=== PATIENT | female | born 1955 | race Caucasian/White ===

== ENCOUNTER 2016-12-24 13:20 | Emergency (ER) | payer MEDICARE, OTHER ==
[~2016-12-24 13:20] MED LIST: ACETAMINOPHEN325 MG PO; ADVAIR 250-501 EACH IH; ADVAIR IH; BACTROBAN15 GM TOP; BRINTELLIX20 MG PO; COMBIVENT RESPIM4 GM IH; DULCOLAX5 MG PO; EFFEXOR100 MG PO; ENDOCET 10-3251 EACH PO; LACTULOSE10 GM/15 M PO; LACTULOSE20 GM/30 M PO; LAMICTAL25 MG PO; MINIPRESS2 MG PO; NEURONTIN600 MG PO; NICOTINE TRANSD21 MG TOP; PREDNISONE10 MG PO; SYNTHROID50 MCG PO; TOPAMAX100 MG PO; TOPROL XL25 MG PO; TRAZODONE HCL150 MG PO; TRAZODONE HCL50 MG PO; XANAX1 MG PO; XYZAL5 MG PO; ZANAFLEX4 MG PO; ZANTAC300 MG PO; ZOFRAN4 MG PO; ZYPREXA2.5 MG PO
[2016-12-31] MEDS ORDERED: XANAX1 MG PO (09:55)
[2016-12-31] MEDS ORDERED: ENDOCET 10-3251 EACH PO (09:55)
[2016-12-31] MEDS ORDERED: EFFEXOR100 MG PO (09:56)
[2016-12-31] MEDS ORDERED: ZANAFLEX4 MG PO (09:56)
[2016-12-31] MEDS ORDERED: TOPAMAX100 MG PO (09:57)
[2016-12-31] MEDS ORDERED: TOPROL XL25 MG PO (09:57)
[2016-12-31] MEDS ORDERED: MINIPRESS2 MG PO (09:57)
[2016-12-31] MEDS ORDERED: XYZAL5 MG PO (09:57)
[2016-12-31] MEDS ORDERED: SYNTHROID50 MCG PO (09:57)
[2016-12-31] MEDS ORDERED: TRAZODONE HCL150 MG PO (09:58)
[2016-12-31] MEDS ORDERED: NEURONTIN600 MG PO (09:58)
[2016-12-31] MEDS ORDERED: ZYPREXA2.5 MG PO (09:58)
[2016-12-31] MEDS ORDERED: BRINTELLIX20 MG PO (09:59)
[2016-12-31] MEDS ORDERED: KRISTALOSE10 GM PO (09:59)
[2016-12-31] MEDS ORDERED: ZANTAC300 MG PO (09:59)
[2016-12-31] MEDS ORDERED: BACTROBAN15 GM TOP (10:00)
[2016-12-31] MEDS ORDERED: DULCOLAX5 MG PO (10:00)
[2016-12-31] MEDS ORDERED: ACETAMINOPHEN325 MG PO (10:00)
[2016-12-31] MEDS ORDERED: NICOTINE PATCH1 EAC1 TOP (10:01)
[2016-12-31] MEDS ORDERED: ALBUTEROL2.5 MG/3 M NEB (10:02)
[2016-12-31] MEDS ORDERED: CEFDINIR300 MG PO (10:02)
[2016-12-31] MEDS ORDERED: PREDNISONE10 MG PO (10:12)
== END 2016-12-24 16:04 | disposition critical access hospital (66) ==
LOC: ER 13:20
DX: J44.1 Chronic obstructive pulmonary disease with (acute) exacerbation (principal); J18.9 Pneumonia, unspecified organism; E86.0 Dehydration; R11.2 Nausea with vomiting, unspecified; K21.9 Gastro-esophageal reflux disease without esophagitis; I10 Essential (primary) hypertension; F41.9 Anxiety disorder, unspecified; F32.9 Major depressive disorder, single episode, unspecified; Z88.1 Allergy status to other antibiotic agents; Z88.2 Allergy status to sulfonamides; Z79.899 Other long term (current) drug therapy
CPT/HCPCS: 36415; 96361; 96365; 96366; 96375

== ENCOUNTER 2016-12-24 13:20 | Inpatient (IN) | payer MEDICARE, OTHER ==
--- NOTE | 2016-12-26 14:55 | NUR ---
PATIENT HAS NO RESPIRATIONS OR PULSE. PUPILS FIXED. JOLENE MAC PA-C AT BEDSIDE. DR. RDZ MADE AWARE. ANATOLIY RANGEL TO CONTACT NEXT OF KIN.
[2016-12-31] MEDS ORDERED: ENDOCET 10-3251 EACH PO (09:55)
[2016-12-31] MEDS ORDERED: XANAX1 MG PO (09:55)
[2016-12-31] MEDS ORDERED: EFFEXOR100 MG PO (09:56)
[2016-12-31] MEDS ORDERED: ZANAFLEX4 MG PO (09:56)
[2016-12-31] MEDS ORDERED: TOPROL XL25 MG PO (09:57)
[2016-12-31] MEDS ORDERED: SYNTHROID50 MCG PO (09:57)
[2016-12-31] MEDS ORDERED: XYZAL5 MG PO (09:57)
[2016-12-31] MEDS ORDERED: MINIPRESS2 MG PO (09:57)
[2016-12-31] MEDS ORDERED: TOPAMAX100 MG PO (09:57)
[2016-12-31] MEDS ORDERED: TRAZODONE HCL150 MG PO (09:58)
[2016-12-31] MEDS ORDERED: NEURONTIN600 MG PO (09:58)
[2016-12-31] MEDS ORDERED: ZYPREXA2.5 MG PO (09:58)
[2016-12-31] MEDS ORDERED: ZANTAC300 MG PO (09:59)
[2016-12-31] MEDS ORDERED: BRINTELLIX20 MG PO (09:59)
[2016-12-31] MEDS ORDERED: KRISTALOSE10 GM PO (09:59)
[2016-12-31] MEDS ORDERED: ACETAMINOPHEN325 MG PO (10:00)
[2016-12-31] MEDS ORDERED: DULCOLAX5 MG PO (10:00)
[2016-12-31] MEDS ORDERED: BACTROBAN15 GM TOP (10:00)
[2016-12-31] MEDS ORDERED: NICOTINE PATCH1 EAC1 TOP (10:01)
[2016-12-31] MEDS ORDERED: CEFDINIR300 MG PO (10:02)
[2016-12-31] MEDS ORDERED: ALBUTEROL2.5 MG/3 M NEB (10:02)
[2016-12-31] MEDS ORDERED: PREDNISONE10 MG PO (10:12)
== END 2016-12-27 17:33 | disposition home or self-care (01) | DRG 190 ==
LOC: ER 13:20 → MED 16:05
PROVIDERS: ADMIT Internal Medicine
DX: J44.0 Chronic obstructive pulmonary disease with (acute) lower respiratory infection (principal); J18.9 Pneumonia, unspecified organism; J44.1 Chronic obstructive pulmonary disease with (acute) exacerbation; R73.9 Hyperglycemia, unspecified; T38.0X5A Adverse effect of glucocorticoids and synthetic analogues, initial encounter; F17.210 Nicotine dependence, cigarettes, uncomplicated; F31.9 Bipolar disorder, unspecified; E03.9 Hypothyroidism, unspecified; R33.9 Retention of urine, unspecified; G89.29 Other chronic pain; D72.829 Elevated white blood cell count, unspecified; N32.89 Other specified disorders of bladder; Y95 Nosocomial condition; E87.6 Hypokalemia; I10 Essential (primary) hypertension; Z88.2 Allergy status to sulfonamides; Z99.81 Dependence on supplemental oxygen; Z80.52 Family history of malignant neoplasm of bladder; Z82.49 Family history of ischemic heart disease and other diseases of the circulatory system; Z90.710 Acquired absence of both cervix and uterus; Z96.659 Presence of unspecified artificial knee joint; Z79.899 Other long term (current) drug therapy; B95.8 Unspecified staphylococcus as the cause of diseases classified elsewhere
CPT/HCPCS: 36415; 87507; 94664; 97161-GP; 97165; J0696; J1650; J3370; J7050

== ENCOUNTER 2017-01-03 15:39 | Emergency (ER) | payer MEDICARE, OTHER ==
[~2017-01-03 15:39] MED LIST changes: +ALBUTEROL2.5 MG/3 M NEB; +CEFDINIR300 MG PO; +KRISTALOSE10 GM PO; +NICOTINE PATCH1 EAC1 TOP
== END 2017-01-03 16:20 | disposition home or self-care (01) ==
LOC: ER 15:39
DX: S93.622A Sprain of tarsometatarsal ligament of left foot, initial encounter (principal); J45.909 Unspecified asthma, uncomplicated; J44.9 Chronic obstructive pulmonary disease, unspecified; E78.5 Hyperlipidemia, unspecified; E03.9 Hypothyroidism, unspecified; I10 Essential (primary) hypertension; F17.210 Nicotine dependence, cigarettes, uncomplicated; Z90.710 Acquired absence of both cervix and uterus; Z90.49 Acquired absence of other specified parts of digestive tract; Z96.653 Presence of artificial knee joint, bilateral; Z79.82 Long term (current) use of aspirin; Z79.899 Other long term (current) drug therapy; Z88.1 Allergy status to other antibiotic agents; Z99.81 Dependence on supplemental oxygen; W19.XXXA Unspecified fall, initial encounter

== ENCOUNTER 2017-03-18 14:59 | Emergency (ER) | payer MEDICARE, OTHER | END 2017-03-18 18:31 | disposition critical access hospital (66) | LOC: LAB 14:59 → ER 14:59 → LAB 18:31 | DX: J44.1 Chronic obstructive pulmonary disease with (acute) exacerbation (principal); J45.909 Unspecified asthma, uncomplicated; I10 Essential (primary) hypertension; E78.00 Pure hypercholesterolemia, unspecified; F17.210 Nicotine dependence, cigarettes, uncomplicated; Z99.81 Dependence on supplemental oxygen; Z90.710 Acquired absence of both cervix and uterus; Z90.49 Acquired absence of other specified parts of digestive tract; Z96.653 Presence of artificial knee joint, bilateral; Z79.82 Long term (current) use of aspirin; Z79.899 Other long term (current) drug therapy; Z88.1 Allergy status to other antibiotic agents; Z88.2 Allergy status to sulfonamides | CPT/HCPCS: 36415; 96374; 96375; J2765 ==

== ENCOUNTER 2017-03-18 14:59 | Inpatient (IN) | payer MEDICARE, OTHER ==
[~2017-03-18] VITALS: Ht 157.5 cm; Wt 56.9 kg
== END 2017-03-21 13:40 | disposition home or self-care (01) | DRG 189 ==
LOC: ER 14:59 → MED 18:32
PROVIDERS: ADMIT Internal Medicine
DX: J96.21 Acute and chronic respiratory failure with hypoxia (principal); J44.0 Chronic obstructive pulmonary disease with (acute) lower respiratory infection; J44.1 Chronic obstructive pulmonary disease with (acute) exacerbation; Z99.81 Dependence on supplemental oxygen; J20.9 Acute bronchitis, unspecified; F41.9 Anxiety disorder, unspecified; F32.9 Major depressive disorder, single episode, unspecified; I10 Essential (primary) hypertension; E03.9 Hypothyroidism, unspecified; Z90.49 Acquired absence of other specified parts of digestive tract; Z96.653 Presence of artificial knee joint, bilateral; Z88.2 Allergy status to sulfonamides; Z79.899 Other long term (current) drug therapy; Z80.52 Family history of malignant neoplasm of bladder; Z82.49 Family history of ischemic heart disease and other diseases of the circulatory system; F17.210 Nicotine dependence, cigarettes, uncomplicated
CPT/HCPCS: 36415; 94640; J0456; J0696; J1650; J2765; Q9967